=== PATIENT | female | born 1965 | race Caucasian/White ===

== ENCOUNTER 2017-05-21 06:19 | Inpatient (IN) | payer BC, OTHER ==
--- NOTE | 2017-05-08 14:15 | HP ---
CC: Dr. Rogers * PREOPERATIVE HISTORY AND PHYSICAL: DATE OF PREOPERATIVE HISTORY AND PHYSICAL EXAMINATION: 05/06/17. DATE OF ADMISSION/SURGERY: 05/21/17 - This patient is scheduled for AA admission by Dr. Cameron on 05/21/17. ATTENDING SURGEON: Cali Cameron MD * (dictated by Cristiane Mederos NP.) . CHIEF COMPLAINT: Morbid obesity. HISTORY OF PRESENT ILLNESS: The patient is a 51-year-old female with class II morbid obesity with a body mass index of 38.8 and comorbidities of type 2 diabetes, Morales's esophagus, osteoarthritis and depression. She is well known to Dr. Cameron. She had a Lap Band placed 15 years ago and at that time, she weighed 245 pounds and had weight loss down to 150 pounds; the Lap Band slipped and required repeat procedure that was complicated by gastric perforation, requiring emergent laparotomy and the Lap Band was removed in 2005. She regained weight to 220 pounds and eventually had the Lap Band replaced. She has not had much success with weight loss and when the band was filled, she suffered reflux symptoms that worsened and was diagnosed with Morales's esophagitis. Currently, there is no fill in the Lap Band. She has discussed with Dr. Cameron removing the Lap Band and converting to laparoscopic Douglas-en-Y gastric bypass. Dr. Cameron has discussed the situation with the patient and has deemed her an appropriate candidate to proceed with laparoscopic removal of the Lap Band and Douglas-en-Y gastric bypass. She completed medically supervised weight loss and all of the necessary preoperative diagnostic testing and evaluations. She started her preoperative diet May 07, 2017. Dr. Cameron discussed the nature of the surgical procedure, the relevant risks, complications, and alternatives, and today I reviewed the typical hospitalization as well as the postoperative care and recovery. The patient understands the importance of following the dietary guidelines postoperatively, the use of vitamin and mineral supplementation, exercise, and followup appointments at [facility]. The patient has had a chance to ask questions and stated that she understands the information and is satisfied with the answers given to her questions. She will sign surgical consent on the day of surgery. PAST MEDICAL HISTORY: Significant for morbid obesity, type 2 diabetes, gastroesophageal reflux disease and Morales's esophagitis, exertional asthma, degenerative disk disease, left knee meniscal tear, requiring left knee arthroscopy and meniscectomy in July 2016, and depression. PAST SURGICAL HISTORY: Left knee arthroscopy and meniscectomy in July 2016 ; Lap Band in 2002 with Lap Band removal and eventual replacement in 2005, laparoscopic lysis of adhesions with ventral hernia repair with mesh in 2007, breast reduction and augmentation in 1997, right carpal tunnel release in 1995, and appendectomy remotely. OB HISTORY: 2, para 2. She is up-to-date with breast exam, pelvic and Pap smear and has a Mirena IUD in place. She reports that she has occasional breakthrough bleeding about twice a year. MEDICATIONS: 1. Venlafaxine ER 150 mg 1 tablet p.o. daily. 2. Benadryl Allergy 10 mg p.o. daily. 3. Ranitidine 75 mg p.o. daily. 4. Metformin 500 mg p.o. daily and the patient was instructed to hold this for 24 hours preoperatively and to possibly discontinue the metformin on the preop diet if she has symptoms of hypoglycemia. 5. Pantoprazole 40 mg p.o. daily. 6. Benefiber supplement. 7. Vitamin D 1000 international units daily. 8. Vitamin B12 at 500 mcg p.o. daily. 9. ProAir inhaler p.r.n. wheezing. ALLERGIES: LATEX caused rash and itching, OXYCODONE caused itching, MORPHINE caused severe vomiting, RELAFEN caused severe headache, and CIPRO caused hives. FAMILY HISTORY: Grandmother with history of deep vein thrombosis; father at age 48 due to possible metastatic colon cancer. History of heart disease and diabetes type 2 in the family. No known anesthesia complications or bleeding tendencies. 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 She rarely drinks alcohol and denies the use of other substances. REVIEW OF SYSTEMS: Constitutional: Negative for fever, chills, or night sweats. No recent viral illnesses. No history of anesthesia complications. HEENT: Negative for dizziness, syncopal episodes, recent headache. Endocrine: Type 2 diabetes with hemoglobin A1c 6.8 and fasting glucose 148 on 03/01/17. She does not do routine fingersticks. Hematologic: No easy bruising or bleeding. Denies any history of deep vein thrombosis or pulmonary embolism. Respiratory: No cough. No dyspnea on exertion, but she does have a history of exertional asthma. No recent flare ups. Cardiovascular: No anginal chest pain , palpitations or orthopnea. Gastrointestinal: History of GERD and Morales's esophagitis; EGD done in 2014 to diagnose the Morales's esophagitis; gallbladder ultrasound in 2012 revealed cholelithiasis, no acute changes. No recent complaints of right upper quadrant pain, change in the color of urine or stool or intolerance to fatty foods. Genitourinary: Denies urinary frequency, urgency, or nocturia. No history of recent urinary tract infection. Musculoskeletal: Status post left knee arthroscopy and meniscectomy and reports mild discomfort after standing for prolonged periods; history of lower back pain with degenerative disk disease and scoliosis. Neurologic: No history of seizures, stroke, or paresthesias. Infectious Disease: Negative for MRSA, hepatitis C, or HIV. PHYSICAL EXAMINATION GENERAL SURVEY: The patient is a 51-year-old female with class II obesity. VITAL SIGNS: Height 62 inches, weight 212 pounds. Body mass index 38.8. Blood pressure 126/82, pulse 78 and regular, respiratory rate 16, temperature 96.7 tympanic. SKIN: Warm, dry, intact. HEENT: Benign. NECK: Supple. No cervical lymphadenopathy. No thyromegaly. BACK: No CVA tenderness. LUNGS: Breath sounds bilaterally clear and equal. HEART: Regular rate and rhythm. No murmurs or rubs. ABDOMEN: Active bowel sounds, obese, soft and nondistended and nontender throughout. Well-healed surgical scars. Palpable Lap Band port. No obvious masses, organomegaly, or evidence of ventral hernia. PELVIC: Deferred. RECTAL: Deferred. EXTREMITIES: Warm. Varicose veins are noted right lower extremity. No edema or ulceration bilaterally. NEUROLOGIC: Alert and oriented x3. Steady gait. IMPRESSION: 1. Class II morbid obesity. 2. Morales's esophagus without dysplasia. PLAN: AA admission to Dr. Cameron' service on 05/21/17, for laparoscopic removal of Lap Band and laparoscopic Douglas-en-Y gastric bypass. GISELE ECKENRODE, HOLTER TECHNICIAN [id number]/[facility] #: [id number] TIN
[~2017-05-21 06:19] MED LIST: Buffered Lidocaine 0.9% SYRIN* 5 ML/SYR SYRINGE INTRADERM ONE; Dexamethasone IV* 4 MG/ML 1 ML (4 MG) IV SLOW PU ONE; Scopolamine 1.5 mg* PATCH TRANSDERM ONE
[2017-05-21] MEDS ORDERED: Dexamethasone IV* 4 MG/ML 1 ML (4 MG) ONE (06:44)
[2017-05-21] MEDS ORDERED: Scopolamine 1.5 mg* PATCH ONE (06:44)
[2017-05-21] MEDS ORDERED: Clindamycin 900 MG IVPREMIX(* 900 MG/50 ML SDV IV ONE (06:44)
[2017-05-21] MEDS ORDERED: ceFAZolin 1 GM ADVAN(*) 1 GM ADDV.VIAL IVPB ONE ×2 (06:44→11:39)
[2017-05-21] MEDS ORDERED: ceFAZolin 2 GM PREMIX (*) 50 ML IVPB ONE ×2 (06:44→11:39)
[2017-05-21] MEDS ORDERED: Heparin VIAL(*) 5000 UNITS/ML VIAL (FIVE THOUSAND) ONE (06:44)
[2017-05-21] MEDS ORDERED: Buffered Lidocaine 0.9% SYRIN* 5 ML/SYR SYRINGE ONE (06:45)
[2017-05-21] MEDS ORDERED: Bupivacaine 0.25% SDV* 30 ML ONE (07:14)
[2017-05-21] MEDS ORDERED: Methylene Blue 0.5 %* 50 MG/10 ML AMP IV ONE (07:14)
[2017-05-21] MEDS ORDERED: Lidocaine 2% PF * 5 ML VIAL ONE (07:20)
[2017-05-21] MEDS ORDERED: Rocuronium* 10 MG/ML VIAL ONE ×2 (07:20→09:32)
[2017-05-21] MEDS ORDERED: Propofol* 10 MG/ML 20 ML BTL IV PUSH ONE (07:20)
[2017-05-21] MEDS ORDERED: fentaNYL* 50 MCG/ML 2 ML VIAL (100 MCG VIAL) ONE ×5 (07:47→12:51)
[2017-05-21] MEDS ORDERED: Midazolam* 1 MG/ML 5 ML VIAL (5 MG) ONE (07:48)
[2017-05-21] MEDS ORDERED: Phenylephrine IV* 40 MCG/ML 10 ML SYRINGE ONE (08:16)
[2017-05-21] MEDS ORDERED: Phenylephrine INJ* 10 MG/ML 1 ML VIAL (10 MG) ONE (08:27)
[2017-05-21] MEDS ORDERED: PROCHLORPERAZINE INJ 5 MG/ML 2 ML VIAL IV PRN (09:01)
[2017-05-21] MEDS ORDERED: Acetaminophen IV 1GM/100ML * 100 ML IVPB ONE (09:01)
[2017-05-21] MEDS ORDERED: fentaNYL* 50 MCG/ML 2 ML VIAL (100 MCG VIAL) IV PRN (09:01)
[2017-05-21] MEDS ORDERED: HYDROmorphone* 1 MG/ML 1 ML CARPUJECT IV PRN ×2 (09:01→13:48)
[2017-05-21] MEDS ORDERED: hydrALAZINE IV* 20 MG/ML VIAL ONE (09:39)
[2017-05-21] MEDS ORDERED: Metoprolol Tartrate IV* 1 MG/ML 5 ML VIAL ONE (09:54)
[2017-05-21] MEDS ORDERED: Acetaminophen IV 1GM/100ML * 100 ML ONE (11:33)
[2017-05-21] MEDS ORDERED: Insulin REGULAR(*) 1 UNITS UNIT ONE (11:38)
[2017-05-21] MEDS ORDERED: Insulin LISPRO* 1 UNITS UNIT SUBCUT ONE (11:40)
[2017-05-21] MEDS ORDERED: Ondansetron INJ* 2 MG/ML VIAL ONE (12:14)
[2017-05-21] MEDS ORDERED: Neostigmine Methylsulfate* 2 MG/2 ML SYRINGE ONE (13:30)
[2017-05-21] MEDS ORDERED: Glycopyrrolate IV* 0.2 MG/ML 1 ML VIAL ONE (13:30)
[2017-05-21] MEDS ORDERED: Ondansetron INJ* 2 MG/ML VIAL IV PRN (13:48)
[2017-05-21] MEDS ORDERED: diPHENhydraMINE IV* 50 MG/ML 1 ml VIAL (BENADRYL) SLOW PUSH PRN (13:48)
[2017-05-21] MEDS ORDERED: Acetaminophen ADULT LIQ* 650 MG/20.3 ML UDC PO PRN (13:48)
--- NOTE | 2017-05-21 13:48 | PN ---
Progress Note - Progress Note Date of Service: 05/21/17 Note: Brief Operative Note: Preop Dx: Morbid Obesity Postop Dx: same Procedure: Laparoscopic lysis of adhesions, lap band removal and conversion to Douglas-en-y gastric bypass Anesthesia: GET Surgeon: Nisha Arts Administrator: Hank Wilkinson EBL: 75-100 mL Fluids: 3700 mL Specimen: none Findings: dictated Drains: 1 OLAMIDE
[2017-05-21] MEDS ORDERED: Labetalol IV* 5 MG/ML 20 ML VIAL ONE (13:55)
[2017-05-21] MEDS ORDERED: Albuterol HFA INHALER* 8 gm MDI INH PRN (14:02)
[2017-05-21] MEDS ORDERED: Fluticasone NASAL SPRAY 50MCG* 16 gm SPRAY BTL BOTH NARES PRN (14:02)
[2017-05-21] MEDS ORDERED: NS 0.9% 500 ML BAG* 500 ML IV PRN (14:05)
[2017-05-21] MEDS ORDERED: Famotidine IV* 10 MG/ML 2 ML (20 mg) ONE (17:30)
[2017-05-21] MEDS: Ketorolac INJ* 30 MG/ML 1 ML VIAL IV PRN (17:48)
[2017-05-21] MEDS: HYDROmorphone* 1 MG/ML 1 ML CARPUJECT IV PRN (20:06)
--- NOTE | 2017-05-22 01:45 | OP ---
CC: Naun Dyson MD, [place] * DATE OF SURGERY: 05/21/17 - ROOM #353 DATE OF : 69 SURGEON: Cali Cameron MD ASSISTANTS: 1. Dr. Ced Wilkinson. 2. GOPI Alatorre ANESTHESIOLOGIST: Rob Domingo MD ANESTHESIA: General endotracheal. PRE-OP DIAGNOSIS: Chronically severe obesity, status post adjustable gastric banding. POST-OP DIAGNOSIS: Chronically severe obesity, status post adjustable gastric banding. OPERATIVE PROCEDURE: Laparoscopic removal of lap band and subcutaneous components with lysis of adhesions and laparoscopic Douglas-en-Y gastric bypass. ESTIMATED BLOOD LOSS: 100 mL. IV FLUIDS: 3.7 L of crystalloids. SPECIMEN: None. DRAINS: A 7 mm Matt-Bunch x1. COMPLICATIONS: None. COUNTS: The instrument, needle, and sponge counts were correct. DESCRIPTION OF PROCEDURE: The patient was brought to the operating room and placed on the table supine. Sequential compression devices were placed on both lower extremities. She was administered general anesthesia and then the Valles catheter was placed. She was positioned and padded appropriately and her abdomen was then prepped and draped in the usual sterile fashion. Time-out was performed. Pneumoperitoneum was established using a Veress needle. This was placed trans- umbilically. After accessing the peritoneal cavity and carbon dioxide had been insufflated to a pressure of 15 mmHg, a 12-mm optical trocar was placed in the left upper quadrant. The laparoscope was introduced and there was noted to be surrounding omental fat and there was no window visible into the remaining abdomen. Subsequently, a 12-mm trocar was placed in the midline epigastrium and again omental fat was encountered, but the inferior abdomen was able to be visualized and a 5-mm trocar was placed in the right upper quadrant and then under direct visualization, a 12-mm trocar was placed in the right upper quadrant further laterally. Extensive adhesiolysis freeing omentum to the anterior abdominal wall was performed with the LigaSure. There was noted to be an abdominal wall mesh from prior umbilical hernia repair. The liver was noted to be adherent to the anterior abdominal wall. There were visualized portions of the lap band access tubing, which was traced to a space beneath the liver. Dissection beneath the liver was complicated and tedious due to the patient's prior history of laparotomy for placement of her lap band. Painstaking dissection to free the undersurface of the liver from adhesions was performed and areas of oozing from the omentum were controlled with LigaSure. The greater omentum was adherent across the anterior stomach to the lesser omentum and LigaSure was used to divide this and the anterior wall of the stomach could be visualized. The dissection then proceeded up along the lesser curvature to the capsule of the band, which was incised with cautery until the entire bishop of the band was able to be identified and freed. Then the bishop of the band was cut and removed. As the dissection proceeded further, a Alfredo liver retractor was placed in the subxiphoid position and used to elevate the left lobe of the liver and then the sutures that had been used to plicate tissue over the band were identified and divided and incremental division of the capsule of the band was performed from the anterior stomach around to the left lateral aspect of the stomach with care to identify the gastric wall and avoid injury to it. Eventually, the band was deflated by first incising the skin over the subcutaneous access port and dividing the subcutaneous tissues with the cautery down to the access port. The access port was then accessed and fluid was withdrawn from the band. Subsequently, the band was able to be removed from the retrogastric tunnel. The band was positioned in the right upper quadrant. The dissection then proceeded in order to free the remaining portions of the stomach taking down any gastrogastric plicating sutures. Ultimately, the dissection was carried out laterally to the left fiordaliza of the diaphragm. To this point of the surgery, it took approximately 2 hours and subsequently the gastric bypass was then performed. The dissection on the lesser curvature of the stomach was performed with cautery and blunt dissection and until the lesser sac was entered. Then a gastric pouch was created with several firings of the Endo ANA MARIA stapler using purple cartridges. The transverse firing on the stomach was performed without any reinforcement and the subsequent vertical firings towards the area of the left fiordaliza of the diaphragm/angle of His were performed with purple cartridges with reinforcement. After completing the division of the gastric pouch, a 36- Finnish gastric lavage tube was placed into the gastric pouch and the transverse colon and omentum were retracted superiorly. At this point, the lap band tubing was again in the way, so it was decided to remove the lap band and subcutaneous component completely at this time. First the subcutaneous port was dissected free from the abdominal wall using cautery and sharp dissection, then tubing was disconnected from the port. The tubing was allowed to retract into the abdomen and the tubing was withdrawn from the areas of the omentum that were enveloping it. Then the tubing was grasped and the entire band was withdrawn through the left upper quadrant port. Next the omentum and transverse colon were able to be retracted superiorly and the ligament of Treitz was identified. The jejunum was measured at 50 to 60 cm and sutured to the lateral staple line of the gastric pouch with interrupted 2-0 silk sutures. Gastrotomy was created in the gastric pouch and enterotomy in the loop of jejunum and then Endo ANA MARIA stapler with a 30-mm montalvo cartridge was used to create the gastrojejunostomy. The gastrojejunal enterostomy defect was then closed with 3-0 Maxon in running fashion over the 36-Finnish and a gastric lavage tube, so as not to encroach upon the anastomosis. Next the [place]-Loop of jejunum was divided to the left of the gastric pouch and then the Douglas limb was measured out for 75 cm at which point a functional end-to - side jejunojejunostomy was created with a 60 mm montalvo Endo ANA MARIA stapler. The common enterotomy was run close with 3-0 Maxon. The 3-0 silks were used to close the mesenteric defect. A OLAMIDE drain was placed into the abdominal cavity and withdrawn through the left upper quadrant 5 mm port site. This port had been placed after the Alfredo liver retractor had been placed. The tubing was sutured to the skin with 3-0 Surgipro and the OLAMIDE drain was placed adjacent to the gastrojejunal anastomosis and subsequently inspection of the liver revealed that there were some areas where the liver had been denuded off capsule; however, hemostasis was good. The ports were all withdrawn under direct visualization and carbon dioxide was released. The skin incisions were closed with kate and dressings applied. The patient tolerated the procedure well and was extubated and transferred to Recovery in a stable condition. The case was more complex than usual to the patient's extensive adhesions because of her prior open abdominal surgery. Time for the case was 5 hours. [id number]/[facility] #: [id number] [facility] HOSPITALCee
[2017-05-22] MEDS: Ketorolac INJ* 30 MG/ML 1 ML VIAL IV PRN ×3 (03:29→20:47)
[2017-05-22] MEDS ORDERED: Famotidine IV* 10 MG/ML 2 ML (20 mg) ONE ×2 (04:53→17:00)
[2017-05-22] MEDS: Heparin VIAL(*) 5000 UNITS/ML VIAL (FIVE THOUSAND) SUBCUT SCH ×3 (05:56→22:18)
[2017-05-22] MEDS: HYDROmorphone* 1 MG/ML 1 ML CARPUJECT IV PRN (06:11)
--- NOTE | 2017-05-22 08:38 | PN ---
Progress Note - Progress Note Date of Service: 05/22/17 SOAP: Subjective: C/o MATHIAS, otherwise no pain. Denies N/V. Discussed surgical findings. Objective: Vital Signs Temp 98.1 F 05/22/17 07:39 Pulse 110 05/22/17 07:39 Resp 18 05/22/17 08:00 BP 113/68 05/22/17 07:39 Pulse Ox 97 05/22/17 08:00 Gen: NAD; lying in bed. Abd: incis dressed, c/d/i; OLAMIDE SS; soft; tender at incisions. Intake & Output 05/21/17 05/22/17 05/22/17 18:59 06:59 18:59 Intake Total 3800 2009 Output Total 700 2387 30 Balance 5910 -827 -30 Intake: IV Fluids 3800 2009 LR 3800 2009 Oral 0 Output: OLAMIDE #1 125 112 30 [place] 475 4508 Estimated Blood Loss 100 Laboratory Results - last 24 hr 05/21/17 05/21/17 05/21/17 11:20 11:22 12:47 POC Glucose (mg/dL) 160 H 203 H 203 H 05/21/17 05/21/17 05/22/17 14:06 17:42 00:32 POC Glucose (mg/dL) 203 H 168 H 145 H 05/22/17 06:02 POC Glucose (mg/dL) 141 H Assessment: POD#1 s/p revision LAGB to LRYGB. Doing well. Plan: Clears. Cont OLAMIDE. Ambulated.
[2017-05-22] MEDS: HYDROcodone/ACET. 7.5/325 LIQ* 15 ML UDC PO PRN (10:52)
[2017-05-22] MEDS: D5W 1/2 NS KCl 20 Meq 1000 ML* 1,000 ML IV SCH ×2 (17:18→23:58)
[2017-05-23] MEDS ORDERED: Famotidine IV* 10 MG/ML 2 ML (20 mg) ONE (04:49)
[2017-05-23] MEDS: Ketorolac INJ* 30 MG/ML 1 ML VIAL IV PRN ×2 (04:55→13:31)
[2017-05-23] MEDS: Heparin VIAL(*) 5000 UNITS/ML VIAL (FIVE THOUSAND) SUBCUT SCH ×3 (05:00→22:03)
[2017-05-23] MEDS: D5W 1/2 NS KCl 20 Meq 1000 ML* 1,000 ML IV SCH (06:55)
--- NOTE | 2017-05-23 08:35 | PN ---
Progress Note - Progress Note Date of Service: 05/23/17 SOAP: Subjective: C/o MATHIAS. Mild abd pain. Tolerating some po. Objective: Vital Signs Temp 98.3 F 05/23/17 03:42 Pulse 108 05/23/17 03:42 Resp 16 05/23/17 03:42 BP 141/80 05/23/17 03:42 Pulse Ox 96 05/23/17 03:42 Abd: ND, incis with kate c/d/i; soft; min tender. OLAMIDE SS. Intake & Output 05/22/17 05/23/17 05/23/17 18:59 06:59 18:59 Intake Total 1696 2566 Output Total 995 3775 1000 Balance 701 -1209 -1000 Intake: IV Fluids 1651 1961 1/2 NS w/ 20 mEq K 1961 LR 1651 IVPB 105 1/2 NS w/ 20 mEq K 105 Oral 45 500 Output: OLAMIDE #1 145 125 Urine 850 3650 1000 Other: # Bowel Movements 0 Assessment: POD#2 s/p revision lap band to bypass. Doing well. Plan: Cont diet. Cont OLAMIDE. HLIV. Home in AM 05/24.
[2017-05-23] MEDS ORDERED: Venlafaxine EXT RELEASE CAP* 75 MG PO SCH (18:00)
[2017-05-23] MEDS: HYDROcodone/ACET. 7.5/325 LIQ* 15 ML UDC PO PRN (22:07)
[2017-05-24] MEDS: HYDROcodone/ACET. 7.5/325 LIQ* 15 ML UDC PO PRN (05:24)
[2017-05-24] MEDS: Heparin VIAL(*) 5000 UNITS/ML VIAL (FIVE THOUSAND) SUBCUT SCH (05:26)
[2017-05-24] MEDS ORDERED: Scopolomine PATCH Remove* 1 NOTE MISC PATCH OFF ONE (06:00)
[2017-05-24 07:51] VITALS: BP 116/79
--- NOTE | 2017-05-24 08:33 | PN ---
Progress Note - Progress Note Date of Service: 05/24/17 SOAP: Subjective: No pain. Passing flatus. Tolerating po without N/V. Objective: Vital Signs Temp 97.9 F 05/24/17 07:36 Pulse 86 05/24/17 07:36 Resp 16 05/24/17 07:36 BP 116/79 05/24/17 07:36 Pulse Ox 96 05/24/17 07:36 NAD abd: incis c/d/i no erythema; OLAMIDE SS Intake & Output 05/23/17 05/24/17 05/24/17 18:59 06:59 18:59 Intake Total 510 Output Total 4250 690 Balance -4250 -180 Intake: Oral 510 Output: OLAMIDE #1 50 90 Urine 4200 600 Assessment: POD#3 s/p removal LAGB/LRYGB. Doing well. Plan: Home today with OLAMIDE. Follow up in 5-7 days for kate and OLAMIDE removal.
[2017-05-24] MEDS ORDERED: HYDROcodone/ACET. 7.5/325 LIQ* 15 ML UDC PO PRN (08:49)
--- NOTE | 2017-05-24 10:37 | DS ---
CC: Dr. Cameron; Dr. Dyson* DISCHARGE SUMMARY: DATE OF ADMISSION: 05/21/17 DATE OF DISCHARGE: 05/24/17 ATTENDING SURGEON: Dr. Cali Cameron * (DICTATED BY GISELE DAS NP) HOSPITAL COURSE: Please refer to admission history and physical for admission details. The patient was taken to the operating room on 05/21/17, and underwent laparoscopic removal of lap band and subcutaneous components with lysis of adhesions and gastric bypass. She had an uneventful postoperative course and as of the morning of discharge was tolerating 120 mL of clear liquids per hour, her pain was well controlled, fingerstick glucoses have run between 145 and 155 over the last 48 hours. PHYSICAL EXAMINATION: Vital Signs: Temperature 97.9, blood pressure 116/79, pulse 86 and regular, respiratory rate 16, O2 saturation 96% on room air. General: Well nourished and in no acute distress, walking around the room. Lungs: Breath sounds bilaterally clear and equal. No rales or wheezes. Heart : Regular rate and rhythm. No murmurs or rubs. Abdomen: Laparoscopic incision sites intact with kate; OLAMIDE drain with serosanguineous drainage; abdomen is obese and soft with active bowel sounds. Extremities: Warm without edema and the calves are nontender. IMPRESSION: Status post laparoscopic removal of lap band and subcutaneous components with lysis of adhesions and gastric bypass, feeling well. PLAN: Discharge home today; medications were reviewed; she will follow the prescribed bariatric dietary guidelines; she has an appointment scheduled in our office on Saturday, May 29, at 3:30 p.m. for a postoperative assessment, OLAMIDE drain removal, and surgical staple removal. All of her questions were answered and she knows to call with any concerns. GISELE DAS, JUAN M [id number]/[facility] #: [id number] TIN
== END 2017-05-24 10:20 | disposition home or self-care (01) | DRG 403 ==
LOC: AA 06:19 → SSU 15:59
PROVIDERS: ADMIT Surgery; ATTEND Surgery
PROC: 0DP64CZ Removal of Extraluminal Device from Stomach, Percutaneous Endoscopic Approach (ICD-10-PCS; 2017-05-21)
PROC: 0DNS4ZZ (ICD-10-PCS; 2017-05-21)
PROC: 0D168ZA Bypass Stomach to Jejunum, Via Natural or Artificial Opening Endoscopic (ICD-10-PCS; principal; 2017-05-21 07:45)
DX: E66.01 Morbid (severe) obesity due to excess calories (principal); M41.9 Scoliosis, unspecified; F32.9 Major depressive disorder, single episode, unspecified; Z68.39 Body mass index [BMI] 39.0-39.9, adult; E11.9 Type 2 diabetes mellitus without complications; K22.70 Barrett's esophagus without dysplasia; J45.998 Other asthma; M19.90 Unspecified osteoarthritis, unspecified site; Z88.5 Allergy status to narcotic agent; Z88.8 Allergy status to other drugs, medicaments and biological substances; Z88.6 Allergy status to analgesic agent; Z88.1 Allergy status to other antibiotic agents; Z91.040 Latex allergy status; Z87.891 Personal history of nicotine dependence; Z83.3 Family history of diabetes mellitus; Z82.49 Family history of ischemic heart disease and other diseases of the circulatory system; I83.91 Asymptomatic varicose veins of right lower extremity; K66.0 Peritoneal adhesions (postprocedural) (postinfection); G43.909 Migraine, unspecified, not intractable, without status migrainosus; K21.0 Gastro-esophageal reflux disease with esophagitis
CPT/HCPCS: 81025; A9270-GY; C1776; J0360; J0690; J1100; J1170; J1644; J1885; J2250; J2405; J2704; J3010

== ENCOUNTER 2018-07-24 18:55 | Emergency (ER) | payer BC ==
--- OUTSIDE RECORDS SUMMARY | 2018-07-24 20:22 | XMS REPORT ---
:1965 Author Organization [facility] Address [address] [place] [address] Care Team Providers Name Role Phone Jermaine Gross Unavailable Unavailable PROBLEMS Type Condition ICD9-CM [id number] Onset Condition SNOMED Code Code Code Dates Status Problem Family history of Z80.0 Active 317446192 malignant neoplasm of digestive organs Problem Unspecified R32 Active 045323822 urinary incontinence Problem Unspecified lump N63.21 Active 925671089523561 in the left breast, upper outer quadrant Problem Nicotine F17.200 Active 359920299 dependence, unspecified, uncomplicated Problem Excessive and N92.0 Active 098937131 frequent menstruation with regular cycle Problem Hypertrophy of N85.2 Active 664934688 uterus Problem Leiomyoma of D25.9 Active 17452592 uterus, unspecified Problem Submucous D25.0 Active 05533011 leiomyoma of uterus Problem 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) Problem Other specified N93.8 Active 163046851 abnormal uterine and vaginal bleeding ALLERGIES No Information ENCOUNTERS Encounter Location Date Diagnosis [address] Jul, [facility] [address] [place], [place] [id number] [facility] [address] [place], Jul, [facility] [id number] [address] Jul, [facility] [address] [place], [place] [id number] [facility] 103 Jun, OBN [place] [id number] [facility] 103 Jun, OBGYN [place], [place] [id number] [place] [facility] 103 Jun, Other specified abnormal 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 [place] [facility] [address] May, Other specified abnormal [address] [place], uterine and vaginal [place] [id number] bleeding N93.8 and Leiomyoma of uterus, unspecified D25.9 [facility] May, Other specified abnormal [facility] [place] [id number] bleeding N93.8 and Leiomyoma of uterus, unspecified D25.9 [place] [facility] 103 May, Other specified abnormal [facility] [place] [id number] bleeding N93.8 and Leiomyoma of uterus, unspecified D25.9 [place] [facility] 103 May, Unspecified lump in the OBGYN [facility] left breast, upper outer [place], [place] [id number] quadrant N63.21 ; Other specified abnormal uterine and vaginal bleeding N93.8 and Leiomyoma of uterus, unspecified D25.9 [place] [facility] 103 May, OBGYN [place] [id number] [place] [facility] 103 Apr, OBG[place], [place] [id number] [place] [facility] 103 Apr, O[place] [id number] [place] [facility] 103 Feb, OBGYN [place] [id number] [place] [facility] 103 January, Encounter for gynecological OBGYN [facility] examination (general) [place], [place] [id number] (routine) with abnormal findings Z01.411 ; Nicotine dependence, unspecified, uncomplicated F17.200 ; Encounter for screening for malignant neoplasm of cervix Z12.4 ; Encounter for screening for malignant neoplasm of colon Z12.11 ; Unspecified urinary incontinence R32 ; Unspecified lump in the left breast, upper outer quadrant N63.21 and Family history of malignant neoplasm of digestive organs Z80.0 [place] [facility] 103 Oct, OBGYN [place] [id number] [place] [facility] 103 Jun, OBGYN [place] [id number] [place] [facility] 103 Jul, Encounter for gynecological OBGYN [facility] examination (general) [place], [place] [id number] (routine) without abnormal findings Z01.419 ; Nicotine dependence, unspecified, uncomplicated F17.200 and Encounter for screening mammogram for malignant neoplasm of breast Z12.31 [place] [facility] 103 Jun, Encounter for gynecological OBGYN [facility] examination (general) [place], [place] [id number] (routine) without abnormal findings Z01.419 and Encounter for screening mammogram for malignant neoplasm of breast Z12.31 [place] [facility] 103 Apr, IUD SURVEILLANCE V25.42 OBGYN [place], [place] [id number] [place] [facility] 103 Feb, OBG[place], [place] [id number] [place] [facility] 103 Feb, Menometrorrhagia 626.2 OBGYN [place] [id number] [place] [facility] 103 29 May, 2015 CONTRACEPTIVE MANGMT NOS OBGYN [facility] V25.9 and Menometrorrhagia [place], [place] [id number] 626.2 [facility] 103 January, Menometrorrhagia 626.2 [place] [id number] [facility] 103 January, [place] [id number] [facility] 103 Dec, Menometrorrhagia 626.2 [place]BN [place] [id number] [address] Oct, Menometrorrhagia 626.2 ; [facility] [address] [place], Tobacco use disorder 305.1 [place] [id number] ; Dysmenorrhea 625.3 and Submucous leiomyoma of uterus 218.0 [facility] 103 Oct, [place]BGYN [place] [id number] [facility] 103 Oct, Menometrorrhagia 626.2 ; [facility] Tobacco use disorder 305.1 [place] [id number] and Dysmenorrhea 625.3 [facility] 103 Oct, Menometrorrhagia 626.2 ; [facility] Tobacco use disorder 305.1 [place], [place] [id number] and Dysmenorrhea 625.3 [facility] 103 Oct, Menometrorrhagia 626.2 and [facility] Submucous leiomyoma of [place], [place] [id number] uterus 218.0 [facility] 103 Oct, Menometrorrhagia 626.2 ; [facility] Tobacco use disorder 305.1 [place] [id number] and Dysmenorrhea 625.3 IMMUNIZATIONS No Known Immunizations SOCIAL HISTORY Never Assessed REASON FOR REFERRAL FUNCTIONAL STATUS PLAN OF CARE VITAL SIGNS MEDICATIONS Unknown Medications PROCEDURES No Known procedures RESULTS No Results REASON FOR VISIT Covered * No deductable or co-insurance * $20 copay (office), $30 copay (out-pt. ) * No pre-certs required * [facility]# [id number] - LMTCB 07/08/18 Insurance Providers [employer] Member Patient Patient Patient Patient Patient Subscriber Subscriber Subscriber Group Insurance Plan Plan Plan Plan ID Relationship Address Phone Name Date of ID Name Date of No Type Insurance Insurance Insurance Coverage to Subscriber Address Phone Name Dates [place] [phone] [place] self Jessica [id number] Plan for 1600 Plan [facility]. [facility] 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 Surgical History breast reduction 1995 or 1996 Surgical History Lap band 2000 Surgical History band had slipped and when they went into to 2004 or 2006 repeair it doctor knicked stomach and had to go in and do emergency surgery to repeair Surgical History Lap Band 2010 Surgical History umbilical hernia repair 2006 Surgical History appendectomy 1985 Surgical History colonoscopy 2012 Surgical History Colonoscopy- 3 polyps- 1 was precancerous 2015 Surgical History Gastric Bypass 05/2017 Hospitalization History see above Hospitalization History see above Hospitalization History childbirth x 2 Hospitalization History childbirth x 2 Hospitalization History Gastric Bypass 05/2017
--- OUTSIDE RECORDS SUMMARY | 2018-07-24 20:22 | XMS REPORT ---
:1965 Author Organization [facility] Address [address] [place] [address] Care Team Providers Name Role Phone Jermaine Gross Unavailable Unavailable PROBLEMS Type Condition ICD9-CM [id number] Onset Condition SNOMED Code Code Code Dates Status Problem Family history of Z80.0 Active 154332766 malignant neoplasm of digestive organs Problem Unspecified R32 Active 608932233 urinary incontinence Problem Unspecified lump N63.21 Active 880513453516684 in the left breast, upper outer quadrant Problem Nicotine F17.200 Active 419230210 dependence, unspecified, uncomplicated Problem Excessive and N92.0 Active 986713407 frequent menstruation with regular cycle Problem Hypertrophy of N85.2 Active 018980436 uterus Problem Leiomyoma of D25.9 Active 36637584 uterus, unspecified Problem Submucous D25.0 Active 56718050 leiomyoma of uterus Problem 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 046262319 anemia secondary to blood loss (chronic) Problem Other specified N93.8 Active 700258961 abnormal uterine and vaginal bleeding ALLERGIES Substance Reaction Event Type Date Status latex swelling Drug Allergy Jun, Active hydrocodone pruritus Drug Allergy Jun, Active morphine extreme vomiting Drug Allergy Jun, Active Relafen severe headache Drug Allergy Jun, Active Cefzil hives Drug Allergy Jun, Active ENCOUNTERS Encounter Location Date Diagnosis [facility] 103 Jun, [place] [id number] [address] Jun, Excessive and frequent OBGYN [address] [place], menstruation with regular [place] [id number] cycle N92.0 ; Leiomyoma of uterus, unspecified D25.9 ; Hypertrophy of uterus N85.2 and 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 [place] [facility] May, Other specified abnormal [facility] [address] [place], uterine and vaginal [place] [id number] bleeding N93.8 and Leiomyoma of uterus, unspecified D25.9 [facility] 103 May, Other specified abnormal [facility] uterine and vaginal [place], [place] [id number] bleeding N93.8 and Leiomyoma of uterus, unspecified D25.9 [facility] 103 May, Other specified abnormal [facility] uterine and vaginal [place], [place] [id number] bleeding N93.8 and Leiomyoma of uterus, unspecified D25.9 [facility] 103 May, [facility], upper outer [place], [place] [id number] quadrant N63.21 ; Other specified abnormal uterine and vaginal bleeding N93.8 and Leiomyoma of uterus, unspecified D25.9 [facility] 103 May, [place], [place] [id number] [facility] 103 Apr, [place] [id number] [facility] Apr, [place] [id number] [facility] 103 Feb, [place] [id number] [place] [facility] 103 January, Encounter for gynecological [facility] examination (general) [place], [place] [id number] (routine) with abnormal findings Z01.411 ; Nicotine dependence, unspecified, uncomplicated F17.200 ; Encounter for screening for malignant neoplasm of cervix Z12.4 ; Encounter for screening for malignant neoplasm of colon Z12.11 ; Unspecified urinary incontinence R32 ; Unspecified lump in the left breast, upper outer quadrant N63.21 and Family history of malignant neoplasm of digestive organs Z80.0 [place] [facility] 103 Oct, [place] [id number] [facility] 103 Jun, [place] [id number] [facility] [facility] 103 Jul, Encounter for gynecological OBGYN [facility] examination (general) [place], [place] [id number] (routine) without abnormal findings Z01.419 ; Nicotine dependence, unspecified, uncomplicated F17.200 and Encounter for screening mammogram for malignant neoplasm of breast Z12.31 [place] [facility] 103 Jun, Encounter for gynecological OBGYN [facility] examination (general) [place], [place] [id number] (routine) without abnormal findings Z01.419 and Encounter for screening mammogram for malignant neoplasm of breast Z12.31 [place] [facility] 103 Apr, IUD SURVEILLANCE V25.42 [place] [id number] [place] [facility] 103 Feb, [place] [id number] [facility] [facility] 103 Feb, Menometrorrhagia 626.2 [place] [id number] [place] [facility] 103 January, CONTRACEPTIVE MANGMT NOS OBN [facility] V25.9 and Menometrorrhagia [place], [place] [id number] 626.2 [place] [facility] 103 January, Menometrorrhagia 626.2 [place] [id number] [place] [facility] 103 January, [place] [id number] [facility] [facility] 103 Dec, Menometrorrhagia 626.2 [place] [id number] [facility] [address] [facility] Oct, Menometrorrhagia 626.2 ; [facility] [address] [place], Tobacco use disorder 305.1 [place] [id number] ; Dysmenorrhea 625.3 and Submucous leiomyoma of uterus 218.0 [facility] 103 Oct, [place], [place] [id number] [facility] 103 Oct, Menometrorrhagia 626.2 ; [facility] Tobacco use disorder 305.1 [place], [place] [id number] and Dysmenorrhea 625.3 [facility] 103 Oct, Menometrorrhagia 626.2 ; [facility] Tobacco use disorder 305.1 [place], [place] [id number] and Dysmenorrhea 625.3 [facility] 103 Oct, Menometrorrhagia 626.2 and [facility] Submucous leiomyoma of [place], [place] [id number] uterus [address] [facility] 103 Oct, Menometrorrhagia 626.2 ; [facility] Tobacco use disorder 305.1 [place], [place] [id number] and Dysmenorrhea 625.3 IMMUNIZATIONS No Known Immunizations SOCIAL HISTORY Never Assessed REASON FOR REFERRAL FUNCTIONAL STATUS PLAN OF CARE Activity Details Follow Up Schedule diagnostic hysteroscopy/D&C (possible in office) f/b TLH/BS /cysto a few weeks later. No med clearance. Reason: VITAL SIGNS Height 61.75 in 2018-07-03 Weight 176 lbs 2018-07-03 BMI 32.45 kg/m2 2018-07-03 Blood pressure systolic 122 mm Hg 2018-07-03 Blood pressure diastolic 72 mm Hg 2018-07-03 MEDICATIONS Medication Instructions Dosage Frequency Start End Duration Status Date Date Zinc 140 mg (as orally once a day 1 tab(s) 24h Active elemental zinc 50 mg) Nasonex 50 intranasally BID 2 12h Active mcg/inh spray(s) Ferosul 325 mg orally QD 1 tab(s) 24h Jun, day(s) Active 2018 Vitamin C 500 mg orally once a day 1 tab(s) 24h Active Zyrtec 10 mg orally once a day 1 tab(s) 24h Active Vitamin B12 100 orally once a day 1 tab(s) 24h Active mcg Colace sodium orally 2 times a 1 cap(s) 12h Active 100 mg day Tumeric Once a Active day Effexor ER 150 orally QD 1 tab 24h Active mg megestrol 20 mg orally 3 times a 1 tab(s) 8h 30 day(s) Active day multivitamin orally once a day 1 cap(s) 24h Active Multiple Vitamins Mirena 52 mg by intrauteral 1 ea Active administration once Ventolin HFA CFC inhaled PRN 2 puff(s) Active free 90 mcg/inh biotin 1000 mcg orally once a day 1 tab(s) 24h Active multivitamin orally once a day 1 tab(s) 24h Active Multiple Vitamins meclizine 12.5 orally PRN for 1 tab(s) Active mg dizziness Vitamin D3 1000 orally once a day 1 tab(s) 24h Active intl units PROCEDURES No Known procedures RESULTS No Results REASON FOR VISIT hystero/emb fup, Anemic Insurance Providers [facility] Member Patient Patient Patient Patient Patient Subscriber Subscriber Subscriber Group Insurance Plan Plan Plan Plan ID Relationship Address Phone Name Date of ID Name Date of No Type Insurance Insurance Insurance Coverage to Subscriber Address Phone Name Dates [facility] [phone] Atticairaj Lopez [id number] Plan for 1600 Plan for [facility] [employer] [facility] Gov[employer] Employees [place] Employees [id number] MEDICAL (GENERAL) HISTORY Type Description Date Medical [...] when they went into to 2004 or 2005 repeair it doctor knicked stomach and had to go in and do emergency surgery to [facility] Surgical History Lap Band 2010 Surgical History umbilical hernia repair 2006 Surgical History appendectomy 1985 Surgical History colonoscopy 2012 Surgical History Colonoscopy- 3 polyps- 1 was precancerous 2015 Surgical History Gastric Bypass 05/2017 Hospitalization History see above Hospitalization History see above Hospitalization History childbirth x 2 Hospitalization History childbirth x 2 Hospitalization History Gastric Bypass 05/2017
--- OUTSIDE RECORDS SUMMARY | 2018-07-24 20:22 | XMS REPORT ---
:1965 Author Organization [facility] Address [address] [place] [address] Care Team Providers Name Role Phone Jermaine Gross Unavailable Unavailable PROBLEMS Type Condition ICD9-CM ICH00-RY Onset Condition SNOMED Code Code Code Dates Status Problem Family history of Z80.0 Active 352751481 malignant neoplasm of digestive organs Problem Unspecified R32 Active 092421174 urinary incontinence Problem Unspecified lump N63.21 Active 507453460425116 in the left breast, upper outer quadrant Problem Nicotine F17.200 Active 704192008 dependence, unspecified, uncomplicated Problem Excessive and N92.0 Active 723618424 frequent menstruation with regular cycle Problem Hypertrophy of N85.2 Active 759643238 uterus Problem Leiomyoma of D25.9 Active 81193679 uterus, unspecified Problem Submucous D25.0 Active 83913684 leiomyoma of uterus Problem 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 103 Jun, OBGYN [place], [place] [id number] [address] Jun, Excessive and frequent [address] [place], menstruation with regular [place] [id number] cycle N92.0 ; Leiomyoma of uterus, unspecified D25.9 ; Hypertrophy of uterus N85.2 and 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 [facility] [place] May, Other specified abnormal [address] [place], uterine and vaginal [place] [id number] bleeding N93.8 and Leiomyoma of uterus, unspecified D25.9 [facility] May, Other specified [facility] vaginal [place], [place] [id number] bleeding N93.8 and Leiomyoma of uterus, unspecified D25.9 [facility] 103 May, Other specified abnormal [facility] uterine and vaginal [place], [place] [id number] bleeding N93.8 and Leiomyoma of uterus, unspecified D25.9 [facility] 103 May, Unspecified [facility] the [facility] left breast, upper outer [place], [place] [id number] quadrant N63.21 ; Other specified abnormal uterine and vaginal bleeding N93.8 and Leiomyoma of uterus, unspecified D25.9 [facility] 103 May, [place], [place] [id number] [facility] 103 Apr, [place] [id number] [facility] 103 Apr, [place] [id number] [facility] 103 Feb, [place] [id number] [place] [facility] 103 January, Encounter for gynecological [facility] examination (general) [place], [place] [id number] (routine) with abnormal findings Z01.411 ; Nicotine dependence, unspecified, uncomplicated F17.200 ; Encounter for screening for malignant neoplasm of cervix Z12.4 ; Encounter for screening for malignant neoplasm of colon Z12.11 ; Unspecified urinary incontinence R32 ; Unspecified lump in the left breast, upper outer quadrant N63.21 and Family history of malignant neoplasm of digestive organs Z80.0 [place] [facility] 103 09 Oct, 2017 OBGYN [place], [place] [id number] [place] [facility] 103 Jun, OBGYN [place] [id number] [place] [facility] 103 Jul, Encounter for gynecological OBGYN [facility] examination (general) [place], [place] [id number] (routine) without abnormal findings Z01.419 ; Nicotine dependence, unspecified, uncomplicated F17.200 and Encounter for screening mammogram for malignant neoplasm of breast Z12.31 [place] [facility] 103 Jun, Encounter for gynecological OBGYN [facility] examination (general) [place], [place] [id number] (routine) without abnormal findings Z01.419 and Encounter for screening mammogram for malignant neoplasm of breast Z12.31 [place] [facility] 103 Apr, IUD SURVEILLANCE V25.42 OBN [place], [place] [id number] [place] [facility] 103 Feb, OBG[place] [id number] [place] [facility] 103 Feb, Menometrorrhagia 626.2 OBGYN [place] [id number] [place] [facility] 103 January, CONTRACEPTIVE MANGMT NOS [facility] V25.9 and Menometrorrhagia [place], [place] [id number] 626.2 [place] [facility] 103 January, Menometrorrhagia 626.2 OBGYN [place], [place] [id number] [place] [facility] 103 January, OBGYN [place] [id number] [place] [facility] 103 Dec, Menometrorrhagia 626.2 OBGYN [place] [id number] [facility] Oct, Menometrorrhagia 626.2 ; OBGYN [address] [place], Tobacco use disorder 305.1 [place] [id number] ; Dysmenorrhea 625.3 and Submucous leiomyoma of uterus 218.0 [facility] 103 Oct, OBGYN [place] [id number] [facility] 103 Oct, Menometrorrhagia 626.2 ; OBGYN [facility] Tobacco use disorder 305.1 [place], [place] [id number] and Dysmenorrhea 625.3 [facility] 103 Oct, Menometrorrhagia 626.2 ; OBGYN [facility] Tobacco use disorder 305.1 [place], [place] [id number] and Dysmenorrhea 625.3 [facility] 103 Oct, Menometrorrhagia 626.2 [facility]omyoma of [place] [id number] uterus 218.0 [facility] 103 Oct, Menometrorrhagia 626.2 ; OBGYN [facility] Tobacco use disorder 305.1 [place], [place] [id number] and Dysmenorrhea 625.3 IMMUNIZATIONS No Known Immunizations SOCIAL HISTORY Never Assessed REASON FOR REFERRAL FUNCTIONAL STATUS PLAN OF CARE VITAL SIGNS MEDICATIONS Medication Instructions Dosage Frequency Start End Date Duration Status Date megestrol 20 mg orally 3 times a 1 tab(s) 8h 30 day(s) Active day PROCEDURES No Known procedures RESULTS No Results REASON FOR VISIT Megestrol and Iron Insurance Providers [facility] Health Member Patient Patient Patient Patient Patient Subscriber Subscriber Subscriber Group Insurance Plan Plan Plan Plan ID Relationship Address Phone Name Date of ID Name Date of No Type Insurance Insurance Insurance Coverage to Subscriber Address Phone Name Dates Michael ANDREEA Valdes [phone] Hegins self Jessica [id number] Plan for [address] [place] [address] [facility] [employer] [place] Employees [id number] MEDICAL (GENERAL) HISTORY Type Description Date Medical [...]
--- OUTSIDE RECORDS SUMMARY | 2018-07-24 20:22 | XMS REPORT ---
:1965 Author Organization [facility] Address [address] [place] [address] Care Team Providers Name Role Phone Jermaine Gross Unavailable Unavailable PROBLEMS Type Condition ICD9-CM WPR31-JA Onset Condition SNOMED Code Code Code Dates Status Problem Nicotine F17.200 Active 445428665 dependence, unspecified, uncomplicated Problem Unspecified lump N63.21 Active 556622421923871 in the left breast, upper outer quadrant Problem Family history of Z80.0 Active 621149405 malignant neoplasm of digestive organs Problem Excessive and N92.0 Active 071876591 frequent menstruation with regular cycle Problem Hypertrophy of N85.2 Active 273651714 uterus Problem Submucous D25.0 Active 54316864 leiomyoma of uterus Problem Unspecified R32 Active 669253213 urinary incontinence Problem 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) Problem Leiomyoma of D25.9 Active 11121754 uterus, unspecified ALLERGIES Substance Reaction Event Type Date Status latex swelling Drug Allergy Jun, Active hydrocodone pruritus Drug Allergy Jun, Active morphine extreme vomiting Drug Allergy Jun, Active Relafen severe headache Drug Allergy Jun, Active Cefzil hives Drug Allergy Jun, Active ENCOUNTERS Encounter Location Date Diagnosis [address] Jul, [facility] [address] [place], [place] [id number] [facility] [address] [place], Jul, [facility] [id number] [address] Jul, [facility] [address] [place], [place] [id number] [facility] 103 Jun, Excessive and frequent OBGYN [facility] menstruation with regular [place], [place] [id number] cycle N92.0 ; Leiomyoma of uterus, unspecified D25.9 ; Hypertrophy of uterus N85.2 ; 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 and Encounter for routine checking of intrauterine contraceptive device Z30.431 [facility] 103 Jun, Excessive and frequent OBGYN [facility] menstruation with regular [place], [place] [id number] cycle N92.0 ; Leiomyoma of uterus, unspecified D25.9 ; Hypertrophy of uterus N85.2 and 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 [facility] 103 Jun, Other specified abnormal OBGYN [facility] uterine and vaginal [place], [place] [id number] bleeding N93.8 and 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 [facility] 103 Jun, OBGYN [place] [id number] [place] [facility] [address] [place] [address] Jun, Excessive and frequent OBGYN [address] [place], menstruation with regular [place] [id number] cycle N92.0 ; Leiomyoma of uterus, unspecified D25.9 ; Hypertrophy of uterus N85.2 and 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 [place] [facility] [address] [facility] May, Other specified abnormal [address] [place], uterine and vaginal [place] [id number] bleeding N93.8 and Leiomyoma of uterus, unspecified D25.9 [facility] 103 May, Other specified abnormal OBGYN [facility] uterine and vaginal [place], [place] [id number] bleeding N93.8 and Leiomyoma of uterus, unspecified D25.9 [facility] 103 May, Other specified abnormal OBGYN [facility] uterine and vaginal [place], [place] [id number] bleeding N93.8 and Leiomyoma of uterus, unspecified D25.9 [place] [facility] 103 11 May, 2018 Unspecified lump in the OBGYN [facility] left breast, upper outer [place], [place] [id number] quadrant N63.21 ; Other specified abnormal uterine and vaginal bleeding N93.8 and Leiomyoma of uterus, unspecified D25.9 [place] [facility] 103 May, OBGYN [place] [id number] [place] [facility] 103 Apr, OBG[place], [place] [id number] [place] [facility] 103 Apr, O[place] [id number] [place] [facility] 103 Feb, OBG[place] [id number] [place] [facility] 103 January, [facility] [place], [place] [id number] (routine) with abnormal findings Z01.411 ; Nicotine dependence, unspecified, uncomplicated F17.200 ; Encounter for screening for malignant neoplasm of cervix Z12.4 ; Encounter for screening for malignant neoplasm of colon Z12.11 ; Unspecified urinary incontinence R32 ; Unspecified lump in the left breast, upper outer quadrant N63.21 and Family history of malignant neoplasm of digestive organs Z80.0 [place] [facility] 103 Oct, OBG[place] [id number] [place] [facility] 103 Jun, OBG[place], [place] [id number] [place] [facility] 103 Jul, Encounter for gynecological OBGYN [facility] examination (general) [place], [place] [id number] (routine) without abnormal findings Z01.419 ; Nicotine dependence, unspecified, uncomplicated F17.200 and Encounter for screening mammogram for malignant neoplasm of breast Z12.31 [place] [facility] 103 Jun, [facility] [place], [place] [id number] (routine) without abnormal findings Z01.419 and Encounter for screening mammogram for malignant neoplasm of breast Z12.31 [facility] 103 Apr, IUD SURVEILLANCE V25.42 [place] [id number] [facility] 103 Feb, [place] [id number] [facility] 103 Feb, Menometrorrhagia 626.2 [place] [id number] [facility] 103 January, CONTRACEPTIVE MANGMT NOS OBGYN [facility] V25.9 and Menometrorrhagia [place], [place] [id number] 626.2 [facility] 103 January, Menometrorrhagia 626.2 [place] [id number] [facility] 103 January, [place] [id number] [facility] 103 Dec, Menometrorrhagia 626.2 [place] [id number] [facility] Oct, Menometrorrhagia 626.2 ; [facility] [address] [place], Tobacco use disorder 305.1 [place] [id number] ; Dysmenorrhea 625.3 and Submucous leiomyoma of uterus 218.0 [place] [facility] 103 Oct, [place] [id number] [place] [facility] 103 Oct, Menometrorrhagia 626.2 ; [facility] Tobacco use disorder 305.1 [place], [place] [id number] and Dysmenorrhea 625.3 [place] [facility] 103 Oct, Menometrorrhagia 626.2 ; [facility] Tobacco use disorder 305.1 [place], [place] [id number] and Dysmenorrhea 625.3 [facility] 103 Oct, Menometrorrhagia 626.2 and [facility] Submucous leiomyoma of [place], [place] [id number] uterus 218.0 [facility] 103 02 Oct, 2014 Menometrorrhagia 626.2 ; [facility] Tobacco use disorder 305.1 [place], [place] [id number] and Dysmenorrhea 625.3 IMMUNIZATIONS No Known Immunizations SOCIAL HISTORY Never Assessed REASON FOR REFERRAL FUNCTIONAL STATUS PLAN OF CARE Activity Details Follow Up f/u as scheduled. Please tell OR will do cold knife extraction. Reason: Pending Test Gynecologic Biopsy VITAL SIGNS Height 61.75 in 2018-07-18 Weight 176 lbs 2018-07-18 BMI 32.45 kg/m2 2018-07-18 Blood pressure systolic 110 mm Hg 2018-07-18 Blood pressure diastolic 72 mm Hg 2018-07-18 MEDICATIONS Medication Instructions Dosage Frequency Start End Duration Status Date Date Vitamin D3 1000 orally once a day 1 tab(s) 24h Active intl units Effexor ER 150 orally QD 1 tab 24h Active mg meclizine 12.5 orally PRN for 1 tab(s) Active mg dizziness Vitamin B12 100 orally once a day 1 tab(s) 24h Active mcg multivitamin orally once a day 1 tab(s) 24h Active Multiple Vitamins Ventolin HFA CFC inhaled PRN 2 puff(s) Active free 90 mcg/inh Ferosul 325 mg orally QD 1 tab(s) 24h 30 day(s) Active megestrol 20 mg orally 3 times a 1 tab(s) 8h 30 day(s) Active day Cytotec 200 mcg orally 1 tab at 1 tab(s) Jun, Active dinner night 2018 before procedure, 1 tab at bedtime night before procedure, 1 tab at 6 AM day of procedure biotin 1000 mcg orally once a day 1 tab(s) 24h Active Vitamin C 500 mg orally once a day 1 tab(s) 24h Active Zinc 140 mg (as orally once a day 1 tab(s) 24h Active elemental zinc 50 mg) Nasonex 50 intranasally BID 2 12h Active mcg/inh spray(s) diazepam 10 mg orally 1 hour 1 tab(s) Jun, 1 days Active before procedure 2017 Mirena 52 mg by intrauteral 1 ea Active administration once Colace sodium orally 2 times a 1 cap(s) 12h Active 100 mg day Tumeric Once a Active day Zyrtec 10 mg orally once a day 1 tab(s) 24h Active Zofran 4 mg orally 1 hour 1 tab(s) 23 Oct, 1 days Active before procedure 2018 PROCEDURES Procedure Date Ordered Result Body Site HYSTEROSCOPY, BIOPSY Jul 18, 2018 PARACERVICAL BLOCK Jul 18, 2018 IUD REMOVAL Jul 18, 2018 URINE TEST Jul 18, 2018 RESULTS No Results REASON FOR VISIT in office diagnostic hysteroscopy/D&C Insurance Providers [facility] Health Member Patient Patient Patient Patient Patient Subscriber Subscriber Subscriber Group Insurance Plan Plan Plan Plan ID Relationship Address Phone Name Date of ID Name Date of No Type Insurance Insurance Insurance Coverage to Subscriber Address Phone Name Dates [place] [phone] Michael Lopez [id number] Plan for [id number] Plan [facility] [employer] [place] [employer] [place] Employees [id number] MEDICAL (GENERAL) HISTORY Type Description Date Medical [...]
[2018-07-24 20:43] VITALS: BP 128/79
[2018-07-24] MEDS ORDERED: Azithromycin TAB* 250 MG PO ONE (21:04)
--- NOTE | 2018-07-24 21:08 | ED ---
Headache - HPI Summary HPI Summary: pt presents to the for evaluation of her headache. she states that she gets migraines on occasion. she states it is located to her frontal and occipital region. this is where she typically gets her headaches. she took tylenol without relief. she states that she thinks she may have a sinus infection. she complains of right facial pain. she denies any fever or chills. - History Of Current Complaint Chief Complaint: UCHeadache Stated Complaint: MIGRAINE Hx Obtained From: Patient Hx Last Menstrual Period: 07/18/18 Timing: Constant Character: Throbbing Aggravating Factor: Nothing Allevating Factors: Nothing - Allergies/Home Medications Allergies/Adverse Reactions: Allergies Allergy/AdvReac Type Severity Reaction Status Date / Time ciprofloxacin [From Cipro] Allergy Intermediate Hives Verified 07/24/18 20:34 hydrocodone [From Vicodin] Allergy Intermediate Itching Verified 07/24/18 20:34 latex Allergy Intermediate Rash And Verified 07/24/18 20:34 SWELLING morphine AdvReac Severe Vomiting Verified 07/24/18 20:34 nabumetone [From Relafen] AdvReac Severe Headache Verified 07/24/18 20:34 NSAIDS (Non-Steroidal AdvReac Avoids PO Verified 07/24/18 20:34 Anti-Inflamma NSAIDS due to Gastric Bypass and Morales's Home Medications: Home Medications Acetaminophen [Acetaminophen Extra Strength] 1,000 mg PO Q6H PRN 07/24/18 [ History Confirmed 07/24/18] Megestrol TAB* [Megace TAB*] 20 mg PO TID 07/24/18 [History Confirmed 07/24/18] Phenylephrine HCl [Sudafed PE] 20 mg PO Q6H PRN 07/24/18 [History Confirmed 10/10] Rizatriptan (NF) [Maxalt-Pulverizer Tender (NF)] 10 mg PO SEE INSTRUCTIONS PRN 07/24/18 [ History Confirmed 07/24/18] Rizatriptan ODT (NF) [Maxalt-OCC THER (NF)] 10 mg PO 07/24/18 [History] diPHENhydraMINE PO* [Benadryl PO 25 MG TAB*] 25 mg PO Q6H PRN 07/24/18 [History Confirmed 07/24/18] PMH/Surg Hx/FS Hx/Imm Hx Previously Healthy: Yes Endocrine/Hematology History: Reports: Hx Anemia - as a teenager Denies: Hx Diabetes Cardiovascular History: Denies: Hx Hypertension, Hx Pacemaker/ICD, Other Cardiovascular Problems/ Disorders Respiratory History: Reports: Hx Asthma Denies: Other Respiratory Problems/Disorders GI History: Reports: Hx Gastroesophageal Reflux Disease Denies: Other GI Disorders History: Denies: Hx Renal Disease Musculoskeletal History: Reports: Hx Arthritis - knees Denies: Other Musculoskeletal History Sensory History: Reports: Hx Contacts or Glasses - READING GLASSES Denies: Hx Hearing Aid Opthamlomology History: Reports: Hx Contacts or Glasses - READING GLASSES Neurological History: Reports: Hx Migraine, Hx Seizures Denies: Other Neuro Impairments/Disorders Psychiatric History: Reports: Hx Anxiety, Hx Depression - ON MEDS Denies: Hx Panic Disorder - Surgical History Surgery Procedure, Year, and Place: lap band 2009 x2, hernia repair , breast reduction 2004, appendectomy 1985 carpal tunnel RELEASE, RIGHT Hx Anesthesia Reactions: No Infectious Disease History: No Infectious Disease History: Denies: Traveled Outside the [place] in Last 30 Days - Family History Known Family History: Positive: Blood Disorder - father with PE, mat GM with PE - Social History Alcohol Use: Rare Alcohol Amount: 1 PER MONTH Substance Use Type: Reports: None Smoking Status (MU): Heavy Every Day Tobacco Smoker Type: Cigarettes Amount Used/How Often: 1/2 PPD Length of Time of Smoking/Using Tobacco: Since Age 18 Have You Smoked in the Last Year: Yes Review of Systems Constitutional: Negative Negative: Fever, Chills, Fatigue, Skin Diaphoresis Negative: Photophobia, Blurred Vision, Diplopia, Drainage Negative: Epistaxis, Dental Pain, Sore Throat, Ear Ache Negative: Palpitations, Chest Pain Negative: Shortness Of Breath, Cough Negative: Abdominal Pain, Vomiting, Diarrhea, Nausea Negative: dysuria, hematuria Negative: Arthralgia, Myalgia, Decreased ROM, Edema Negative: Rash, Bruising Positive: Headache. Negative: Paresthesia, Numbness, Syncope Negative: Anxious, Depressed All Other Systems Reviewed And Are Negative: No Physical Exam Triage Information Reviewed: Yes Vital Signs On Initial Exam: Initial Vitals Temp Pulse Resp BP Pulse Ox 98.9 F 86 20 128/79 99 07/24/18 20:29 07/24/18 20:29 07/24/18 20:29 07/24/18 20:29 07/24/18 20:29 Vital Signs Reviewed: Yes Appearance: Positive: Well-Appearing, No Pain Distress, Well-Nourished Skin: Positive: Warm, Dry Head/Face: Positive: Normal Head/Face Inspection Eyes: Positive: Normal, EOMI, SJ ENT: Positive: Normal ENT inspection, Hearing grossly normal, Pharynx normal, Other - right facial pain over her maxillary sinus Neck: Positive: Supple, Nontender Respiratory/Lung Sounds: Positive: Breath Sounds Present Cardiovascular: Positive: Normal, RRR Abdomen Description: Positive: Nontender, Soft Bowel Sounds: Positive: Present Musculoskeletal: Positive: Normal, Strength/ROM Intact Neurological: Positive: Normal, Sensory/Motor Intact, Alert, Oriented to Person Place, Time, CN Intact II-III Psychiatric: Positive: Normal AVPU Assessment: Alert Diagnostics - Vital Signs Vital Signs Temp Pulse Resp BP Pulse Ox 07/24/18 20:29 98.9 F 86 20 128/79 99 - Laboratory Lab Statement: Any lab studies that have been ordered have been reviewed, and results considered in the medical decision making process. Headache Course/Dx - Diagnoses Provider Diagnoses: Migraine, Sinusitis Discharge - Sign-Out/Discharge Documenting (check all that apply): Patient Departure All imaging exams completed and their final reports reviewed: No Studies - Discharge Plan Condition: Stable Disposition: HOME Prescriptions: Azithromyxin KRIS (NF) [Z-Kris (Zithromax) 250 mg tabs #6] 2 tab PO .TODAY, THEN 1 DAILY #6 tab Patient Education Materials: Sinusitis (ED), Migraine Headache (ED) Forms: *Work Release Referrals: Naun Chavez MD [Primary Care Provider] - Additional Instructions: take tylenol for pain. take the antibiotic as instructed. return if worse or any new symptoms. It is important to follow up with your primary care physician. - Billing Disposition and Condition Condition: STABLE Disposition: Home
== END 2018-07-24 21:13 | disposition home or self-care (01) ==
LOC: UCCORT 18:55
DX: G43.909 Migraine, unspecified, not intractable, without status migrainosus (principal); J01.90 Acute sinusitis, unspecified; F17.210 Nicotine dependence, cigarettes, uncomplicated; Z88.5 Allergy status to narcotic agent; Z88.8 Allergy status to other drugs, medicaments and biological substances
CPT/HCPCS: 99212; A9270-GY; G0463

== ENCOUNTER 2018-08-03 09:07 | Emergency (ER) | payer BC, OTHER ==
--- OUTSIDE RECORDS SUMMARY | 2018-08-03 10:25 | XMS REPORT ---
:1965 Author Organization [facility] Address [address] [place] [address] Care Team Providers Name Role Phone Jermaine Gross Unavailable Unavailable PROBLEMS Type Condition ICD9-CM [id number] Onset Condition SNOMED Code Code Code Dates Status Problem Nicotine F17.200 Active 451299235 dependence, unspecified, uncomplicated Problem Unspecified lump N63.21 Active 592853843706219 in the left breast, upper outer quadrant Problem Family history of Z80.0 Active 418056446 malignant neoplasm of digestive organs Problem Excessive and N92.0 Active 620924543 frequent menstruation with regular cycle Problem Hypertrophy of N85.2 Active 580434525 uterus Problem Submucous D25.0 Active 69231964 leiomyoma of uterus Problem Unspecified R32 Active 183257218 urinary incontinence Problem 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 094461568 anemia secondary to blood loss (chronic) Problem Leiomyoma of D25.9 Active 14278107 uterus, unspecified ALLERGIES Substance Reaction Event Type Date Status latex swelling Drug Allergy Jul, Active hydrocodone pruritus Drug Allergy Jul, Active morphine extreme vomiting Drug Allergy Jul, Active Relafen severe headache Drug Allergy Jul, Active Cefzil hives Drug Allergy Jul, Active ENCOUNTERS Encounter Location Date Diagnosis [address] Jul, [facility] [address] [place], [place] [id number] [facility] [address] [place], Jul, [facility] [id number] [facility] 103 Jul, Excessive and frequent OBGYN [facility] menstruation with regular [place], [place] [id number] cycle N92.0 ; Leiomyoma of uterus, unspecified D25.9 and Hypertrophy of uterus N85.[address] [facility] Jul, Excessive and frequent [address] [place], menstruation with regular [place] [id number] cycle N92.0 ; Leiomyoma of uterus, unspecified D25.9 ; Hypertrophy of uterus N85.2 and 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 [facility] 103 Jun, Excessive and frequent OBGYN [facility] menstruation with regular [place], [place] [id number] cycle N92.0 ; Leiomyoma of uterus, unspecified D25.9 ; Hypertrophy of uterus N85.2 ; 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 and Encounter for routine checking of intrauterine contraceptive device Z30.431 [facility] Jun, Excessive and frequent OBGYN [facility] menstruation with regular [place], [place] [id number] cycle N92.0 ; Leiomyoma of uterus, unspecified D25.9 ; Hypertrophy of uterus N85.2 and 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 [facility] 103 Jun, Other specified [facility] [place] [id number] bleeding N93.8 and 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 [facility] 103 Jun, OBG[place] [id number] [facility] Jun, Excessive and frequent [address]BGYN [address] [place], menstruation with regular [place] [id number] cycle N92.0 ; Leiomyoma of uterus, unspecified D25.9 ; Hypertrophy of uterus N85.2 and 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 [place] [facility] [address] [place] [address] May, Other specified abnormal OBGYN [address] [place], uterine and vaginal [place] [id number] bleeding N93.8 and Leiomyoma of uterus, unspecified D25.9 [facility] 103 May, Other specified abnormal [facility] uterine and vaginal [place], [place] [id number] bleeding N93.8 and Leiomyoma of uterus, unspecified D25.9 [facility] May, Other specified abnormal [facility] uterine and vaginal [place], [place] [id number] bleeding N93.8 and Leiomyoma of uterus, unspecified D25.9 [facility] 103 May, Unspecified lump in the [facility] left breast, upper outer [place], [place] [id number] quadrant N63.21 ; Other specified abnormal uterine and vaginal bleeding N93.8 and Leiomyoma of uterus, unspecified D25.9 [facility] May, [place] [id number] [facility] Apr, [place] [id number] [facility] Apr, [place] [id number] [facility] 103 Feb, [place] [id number] [facility] January, Encounter for gynecological [facility] examination (general) [place], [place] [id number] (routine) with abnormal findings Z01.411 ; Nicotine dependence, unspecified, uncomplicated F17.200 ; Encounter for screening for malignant neoplasm of cervix Z12.4 ; Encounter for screening for malignant neoplasm of colon Z12.11 ; Unspecified urinary incontinence R32 ; Unspecified lump in the left breast, upper outer quadrant N63.21 and Family history of malignant neoplasm of digestive organs Z80.0 [facility] 103 Oct, [place] [id number] [facility] Jun, [place] [id number] [facility] 103 04 Jul, 2016 Encounter for gynecological OBGYN [facility] examination (general) [place], [place] [id number] (routine) without abnormal findings Z01.419 ; Nicotine dependence, unspecified, uncomplicated F17.200 and Encounter for screening mammogram for malignant neoplasm of breast Z12.31 [place] [facility] 103 30 Jun, 2015 Encounter for gynecological OBGYN [facility] examination (general) [place], [place] [id number] (routine) without abnormal findings Z01.419 and Encounter for screening mammogram for malignant neoplasm of breast Z12.31 [facility] 103 Apr, IUD SURVEILLANCE V25.42 [place] [id number] [facility] 103 Feb, [place] [id number] [facility] 103 Feb, Menometrorrhagia 626.2 [place] [id number] [facility] 103 January, CONTRACEPTIVE MANGMT NOS OBN [facility] V25.9 and Menometrorrhagia [place], [place] [id number] 626.2 [place] [facility] 103 January, Menometrorrhagia 626.2 [place] [id number] [place] [facility] January, [place] [id number] [facility] 103 Dec, Menometrorrhagia 626.2 [place] [id number] [facility] Oct, Menometrorrhagia 626.2 ; OBN [address] [place], Tobacco use disorder 305.1 [place] [id number] ; Dysmenorrhea 625.3 and Submucous leiomyoma of uterus 218.0 [place] [facility] Oct, [place] [id number] [facility] 103 11 Oct, 2014 Menometrorrhagia 626.2 ; [facility] Tobacco use disorder 305.1 [place], [place] [id number] and Dysmenorrhea 625.3 [facility] 103 10 Oct, 2014 Menometrorrhagia 626.2 ; [facility] Tobacco use disorder 305.1 [place], [place] [id number] and Dysmenorrhea 625.3 [facility] 103 10 Oct, [address] [facility] Submucous leiomyoma of [place], [place] [id number] uterus 218.0 [facility] 103 Oct, Menometrorrhagia 626.2 ; [facility] Tobacco use disorder 305.1 [place], [place] [id number] and Dysmenorrhea 625.3 IMMUNIZATIONS No Known Immunizations SOCIAL HISTORY Never Assessed REASON FOR REFERRAL FUNCTIONAL STATUS PLAN OF CARE Activity Details Follow Up f/u 2-3 wk post-op. Let OR know possible contained cold knife extraction. Reason: VITAL SIGNS Height 61.75 in 2018-07-31 Weight 174 lbs 2018-07-31 BMI 32.08 kg/m2 2018-07-31 Blood pressure systolic 112 mm Hg 2018-07-31 Blood pressure diastolic 72 mm Hg 2018-07-31 MEDICATIONS Medication Instructions Dosage Frequency Start End Duration Status Date Date Vitamin B12 100 orally once a day 1 tab(s) 24h Unknown mcg megestrol 20 mg orally 3 times a 1 tab(s) 8h 30 day(s) Unknown day Ventolin HFA CFC inhaled PRN 2 puff(s) Unknown free 90 mcg/inh Colace sodium orally 2 times a 1 cap(s) 12h Unknown 100 mg day Zinc 140 mg (as orally once a day 1 tab(s) 24h Unknown elemental zinc 50 mg) Ferosul 325 mg orally QD 1 tab(s) 24h 30 day(s) Active Nasonex 50 intranasally BID 2 12h Unknown mcg/inh spray(s) biotin 1000 mcg orally once a day 1 tab(s) 24h Unknown Vitamin C 500 mg orally once a day 1 tab(s) 24h Unknown Tumeric Once a Unknown day Vitamin D3 1000 orally once a day 1 tab(s) 24h Unknown intl units Effexor ER 150 orally QD 1 tab 24h Unknown mg meclizine 12.5 orally PRN for 1 tab(s) Unknown mg dizziness multivitamin orally once a day 1 tab(s) 24h Unknown Multiple Vitamins Zyrtec 10 mg orally once a day 1 tab(s) 24h Unknown Mirena 52 mg by intrauteral 1 ea Unknown administration once Z-PACK 2 STAT 24h Active THEN 1 PO PROCEDURES No Known procedures RESULTS No Results REASON FOR VISIT post op and presurgical counseling , Plan CKE Insurance Providers [facility] Member Patient Patient Patient Patient Patient Subscriber Subscriber Subscriber Group Insurance Plan Plan Plan Plan ID Relationship Address Phone Name Date of ID Name Date of No Type Insurance Insurance Insurance Coverage to Subscriber Address Phone Name Dates [place] [phone] Michael Lopez [id number] Plan for [id number] Plan [employer] [place] [employer] [employer] [place] [employer] [phone] MEDICAL (GENERAL) HISTORY Type Description Date Medical [...] go in and do emergency surgery to [facility] Surgical History Lap Band 2010 Surgical History umbilical hernia repair 2006 Surgical History appendectomy 1985 Surgical History colonoscopy 2012 Surgical History Colonoscopy- 3 polyps- 1 was precancerous 2015 Surgical History Gastric Bypass 05/2017 Surgical History Hyteroscopy d & C In office procedure 07/18/18 Hospitalization History see above Hospitalization History see above Hospitalization History childbirth x 2 Hospitalization History childbirth x 2 Hospitalization History Gastric Bypass 05/2017
--- OUTSIDE RECORDS SUMMARY | 2018-08-03 10:25 | XMS REPORT ---
:1965 Author Organization [facility] Address [address] [place] [address] Care Team Providers Name Role Phone Jermaine Gross Unavailable Unavailable PROBLEMS Type Condition ICD9-CM [id number] Onset Condition SNOMED Code Code Code Dates Status Problem Nicotine F17.200 Active 061030739 dependence, unspecified, uncomplicated Problem Unspecified lump N63.21 Active 738809401975796 in the left breast, upper outer quadrant Problem Family history of Z80.0 Active 428670506 malignant neoplasm of digestive organs Problem Excessive and N92.0 Active 065178918 frequent menstruation with regular cycle Problem Hypertrophy of N85.2 Active 086588596 uterus Problem Submucous D25.0 Active 19003580 leiomyoma of uterus Problem Unspecified R32 Active 402812659 urinary incontinence Problem 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) Problem Leiomyoma of D25.9 Active 71015326 uterus, unspecified ALLERGIES No Information ENCOUNTERS Encounter Location Date Diagnosis [address] Jul, OBGYN [address] [place], [place] [id number] [facility] [address] [place], Jul, [facility] [id number] [facility] 103 Jul, Excessive and frequent OBGYN [facility] menstruation with regular [place], [place] [id number] cycle N92.0 ; Leiomyoma of uterus, unspecified D25.9 and Hypertrophy of uterus N85.[address] Jul, Excessive and frequent OBGYN [address] [place], menstruation with regular [place] [id number] cycle N92.0 ; Leiomyoma of uterus, unspecified D25.9 ; Hypertrophy of uterus N85.2 and 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 [facility] Jun, Excessive and frequent OBGYN [facility] menstruation with regular [place], [place] [id number] cycle N92.0 ; Leiomyoma of uterus, unspecified D25.9 ; Hypertrophy of uterus N85.2 ; 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 and Encounter for routine checking of intrauterine contraceptive device Z30.431 [place] [facility] 103 Jun, Excessive and frequent OBGYN [facility] menstruation with regular [place], [place] [id number] cycle N92.0 ; Leiomyoma of uterus, unspecified D25.9 ; Hypertrophy of uterus N85.2 and 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 [facility] Jun, Other specified abnormal OBGYN [facility] uterine and vaginal [place], [place] [id number] bleeding N93.8 and 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 [place] [facility] 103 Jun, OBGYN [place], [place] [id number] [facility] [address] [place] [address] Jun, Excessive and frequent OBGYN [address] [place], menstruation with regular [place] [id number] cycle N92.0 ; Leiomyoma of uterus, unspecified D25.9 ; Hypertrophy of uterus N85.2 and 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 [place] [facility] [address] May, Other specified abnormal [address]YN [address] [place], uterine and vaginal [place] [id number] bleeding N93.8 and Leiomyoma of uterus, unspecified D25.9 [place] [facility] 103 May, Other specified abnormal OBGYN [facility] uterine and vaginal [place], [place] [id number] bleeding N93.8 and Leiomyoma of uterus, unspecified D25.9 [place] [facility] 103 May, Other specified abnormal [facility] uterine and vaginal [place], [place] [id number] bleeding N93.8 and Leiomyoma of uterus, unspecified D25.9 [place] [facility] 103 May, Unspecified lump in the [facility] left breast, upper outer [place], [place] [id number] quadrant N63.21 ; Other specified abnormal uterine and vaginal bleeding N93.8 and Leiomyoma of uterus, unspecified D25.9 [place] [facility] 103 May, O[place], [place] [id number] [place] [facility] 103 Apr, [place] [id number] [place] [facility] 103 Apr, [place] [id number] [place] [facility] 103 Feb, [place] [id number] [place] [facility] 103 January, [facility] [place], [place] [id number] (routine) with abnormal findings Z01.411 ; Nicotine dependence, unspecified, uncomplicated F17.200 ; Encounter for screening for malignant neoplasm of cervix Z12.4 ; Encounter for screening for malignant neoplasm of colon Z12.11 ; Unspecified urinary incontinence R32 ; Unspecified lump in the left breast, upper outer quadrant N63.21 and Family history of malignant neoplasm of digestive organs Z80.0 [place] [facility] 103 Oct, [place] [id number] [place] [facility] 103 Jun, [place] [id number] [place] [facility] 103 Jul, [facility] [place], [place] [id number] (routine) without abnormal findings Z01.419 ; Nicotine dependence, unspecified, uncomplicated F17.200 and Encounter for screening mammogram for malignant neoplasm of breast Z12.31 [place] [facility] 103 Jun, Encounter for gynecological OBGYN [facility] examination (general) [place], [place] [id number] (routine) without abnormal findings Z01.419 and Encounter for screening mammogram for malignant neoplasm of breast Z12.31 [facility] Apr, IUD SURVEILLANCE V25.42 OBGYN [place] [id number] [place] [facility] 103 Feb, OBG[place], [place] [id number] [place] [facility] 103 Feb, Menometrorrhagia 626.2 OBGYN [place] [id number] [place] [facility] 103 January, CONTRACEPTIVE MANGMT NOS OBGYN [facility] V25.9 and Menometrorrhagia [place], [place] [id number] 626.2 [place] [facility] 103 January, Menometrorrhagia 626.2 OBGYN [place] [id number] [place] [facility] 103 January, OBG[place], [place] [id number] [place] [facility] 103 Dec, Menometrorrhagia 626.2 OBN [place] [id number] [address] Oct, Menometrorrhagia 626.2 ; [facility] [address] [place], Tobacco use disorder 305.1 [place] [id number] ; Dysmenorrhea 625.3 and Submucous leiomyoma of uterus 218.0 [place] [facility] 103 Oct, OBGYN [place] [id number] [place] [facility] 103 Oct, Menometrorrhagia 626.2 ; [facility] Tobacco use disorder 305.1 [place], [place] [id number] and Dysmenorrhea 625.3 [facility] 103 10 Oct, 2014 Menometrorrhagia 626.2 ; [facility] Tobacco use disorder 305.1 [place], [place] [id number] and Dysmenorrhea 625.3 [facility] 103 10 Oct, 2014 Menometrorrhagia 626.2 and [facility] Submucous leiomyoma of [place], [place] [id number] uterus 218.0 [facility] 103 02 Oct, 2014 Menometrorrhagia 626.2 ; [facility] Tobacco use disorder 305.1 [place], [place] [id number] and Dysmenorrhea 625.3 IMMUNIZATIONS No Known Immunizations SOCIAL HISTORY Never Assessed REASON FOR REFERRAL FUNCTIONAL STATUS PLAN OF CARE Activity Details Pending Test URINE CULTURE Pending Test URINALYSIS WITH MICROSCOPIC VITAL SIGNS MEDICATIONS Unknown Medications PROCEDURES No Known procedures RESULTS No Results REASON FOR VISIT Urine for Presurg Insurance Providers [facility] Health Member Patient Patient Patient Patient Patient Subscriber Subscriber Subscriber Group Insurance Plan Plan Plan Plan ID Relationship Address Phone Name Date of ID Name Date of No Type Insurance Insurance Insurance Coverage to Subscriber Address Phone Name Dates [place] [phone] E[place] self Jessica [id number] Plan for 1600 Plan [employer] [facility] Gov[employer] [place] Employees [phone] MEDICAL (GENERAL) HISTORY Type Description Date Medical [...]
[2018-08-03 10:33] VITALS: BP 114/72
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
== END 2018-08-03 11:00 | disposition home or self-care (01) ==
LOC: UCCORT 09:07
DX: S40.022A Contusion of left upper arm, initial encounter (principal); S40.021A Contusion of right upper arm, initial encounter; Y04.2XXA Assault by strike against or bumped into by another person, initial encounter; Y92.9 Unspecified place or not applicable; Y99.0 Civilian activity done for income or pay; Z88.1 Allergy status to other antibiotic agents; Z88.5 Allergy status to narcotic agent; Z88.8 Allergy status to other drugs, medicaments and biological substances; F17.210 Nicotine dependence, cigarettes, uncomplicated
CPT/HCPCS: 99211; G0463

== ENCOUNTER 2019-05-25 15:57 | Emergency (ER) | payer BC ==
[2019-05-25 17:01] VITALS: BP 106/75
--- NOTE | 2019-05-25 17:08 | UC ---
Throat Pain/Nasal Mich HPI - HPI Summary HPI Summary: Pt presetns with c/o sinus congestion, pressure and pain X 3 days. Pt has hx of sinusitis and states she thinks she is "getting another one" - History of Current Complaint Stated Complaint: POSSIBLE SINUS INFECTION Time Seen by Provider: 05/25/19 16:47 Hx Obtained From: Patient Hx Last Menstrual Period: 07/18/18 ?: No Onset/Duration: Gradual Onset, Lasting Days, Still Present, Worse Since - onset Severity: Moderate Pain Intensity: 0 Cough: None Associated Signs & Symptoms: Positive: Sinus Discomfort, Nasal Discharge Related History: Seasonal Allergies, Smoking - Epiglottits Risk Factors Epiglottis Risk Factors: Negative - Allergies/Home Medications Allergies/Adverse Reactions: Allergies Allergy/AdvReac Type Severity Reaction Status Date / Time ciprofloxacin [From Cipro] Allergy Intermediate Hives Verified 05/25/19 16:55 hydrocodone [From Vicodin] Allergy Intermediate Itching Verified 05/25/19 16:55 latex Allergy Intermediate Rash And Verified 05/25/19 16:55 SWELLING morphine AdvReac Severe Vomiting Verified 05/25/19 16:55 nabumetone [From Relafen] AdvReac Severe Headache Verified 05/25/19 16:55 NSAIDS (Non-Steroidal AdvReac Avoids PO Verified 05/25/19 16:55 Anti-Inflamma NSAIDS due to Gastric Bypass and Morales's PMH/Surg Hx/FS Hx/Imm Hx Previously Healthy: Yes Neurological History: Migraine Psychological History: Depression - Surgical History Surgical History: Yes Surgery Procedure, Year, and Place: lap band 2009 x2, hernia repair, breast reduction 2004, appendectomy 1984; carpal tunnel RELEASE, RIGHT; hysterectomy January 2018 - Family History Known Family History: Positive: Hypertension, Blood Disorder - father with PE, mat GM with PE - Social History Occupation: Employed Full-time Lives: With Family Alcohol Use: None Alcohol Amount: 1 PER MONTH Substance Use Type: None Smoking Status (MU): Heavy Every Day Tobacco Smoker Type: Cigarettes Amount Used/How Often: 1/2 PPD Length of Time of Smoking/Using Tobacco: Since Age 18 Have You Smoked in the Last Year: Yes When Did the Patient Quit Smoking/Using Tobacco: 5 months ago Household Exposure Type: Cigarettes - Immunization History Most Recent Influenza Vaccination: 2016 Most Recent Tetanus Shot: utd Most Recent Pneumonia Vaccination: 2014 Vaccination Up to Date: Yes Review of Systems All Other Systems Reviewed And Are Negative: Yes Constitutional: Positive: Fatigue Skin: Positive: Negative Eyes: Positive: Negative ENT: Positive: Nasal Discharge, Sinus Congestion, Sinus Pain/Tenderness Respiratory: Positive: Negative Cardiovascular: Positive: Negative Gastrointestinal: Positive: Negative Genitourinary: Positive: Negative Motor: Positive: Negative Neurovascular: Positive: Negative Musculoskeletal: Positive: Myalgia Neurological: Positive: Headache Psychological: Positive: Negative Is Patient Immunocompromised?: No Physical Exam Triage Information Reviewed: Yes Appearance: Ill-Appearing Vital Signs: Initial Vital Signs Temp 99.1 F 05/25/19 16:58 Pulse 94 05/25/19 16:58 Resp 16 05/25/19 16:58 BP 106/75 05/25/19 16:58 Pulse Ox 96 05/25/19 16:58 Vital Signs Reviewed: Yes Eye Exam: Normal ENT: Positive: Nasal congestion, Sinus tenderness Dental Exam: Normal Neck exam: Normal Respiratory: Positive: No respiratory distress Musculoskeletal Exam: Normal Neurological Exam: Normal Psychological Exam: Normal Skin Exam: Normal Throat Pain/Nasal Course/Dx - Differential Dx/Diagnosis Differential Diagnosis/HQI/PQRI: Influenza, Sinusitis, URI Provider Diagnosis: Sinusitis Discharge ED - Sign-Out/Discharge Documenting (check all that apply): Patient Departure All imaging exams completed and their final reports reviewed: No Studies - Discharge Plan Condition: Stable Disposition: HOME Prescriptions: Amoxicillin PO (*) [Amoxicillin 875 MG (*)] 875 mg PO Q12H #20 tab Fluconazole 100 MG TAB* [Diflucan 100 MG TAB*] 100 mg PO DAILY #2 tab Patient Education Materials: Sinusitis (ED) Referrals: Naun Chavez MD [Primary Care Provider] - If Needed - Billing Disposition and Condition Condition: STABLE Disposition: Home
== END 2019-05-25 17:19 | disposition home or self-care (01) ==
LOC: UCCORT 15:57
DX: J32.9 Chronic sinusitis, unspecified (principal); F17.210 Nicotine dependence, cigarettes, uncomplicated
CPT/HCPCS: 99212; G0463

== ENCOUNTER 2019-07-16 09:15 | Emergency (ER) | payer BC ==
[2019-07-16 09:34] VITALS: BP 118/81
--- NOTE | 2019-07-16 10:06 | UC ---
Eye Complaint HPI - HPI Summary HPI Summary: 53-year-old woman comes in with chief complaint of right eye irritation and swelling of the right lower orbit. She has some irritation lateral aspect of the eye this morning with some crusting. She's also been having upper respiratory tract infection symptoms for more than a week. She had sinusitis symptoms 3 weeks ago and had a continued cough but never really went away one week ago she started with runny nose and went into her chest and now she's having chest congestion. No wheezing no history of asthma. No fevers measured. She does feel tired. - History of Current Complaint Chief Complaint: UCEye Stated Complaint: RT EYE CONCERN Time Seen by Provider: 07/16/19 09:54 Hx Last Menstrual Period: 07/18/18 Pain Intensity: 0 - Allergies/Home Medications Allergies/Adverse Reactions: Allergies Allergy/AdvReac Type Severity Reaction Status Date / Time ciprofloxacin [From Cipro] Allergy Intermediate Hives Verified 07/16/19 09:35 hydrocodone [From Vicodin] Allergy Intermediate Itching Verified 07/16/19 09:35 latex Allergy Intermediate Rash And Verified 07/16/19 09:35 SWELLING morphine AdvReac Severe Vomiting Verified 07/16/19 09:35 nabumetone [From Relafen] AdvReac Severe Headache Verified 07/16/19 09:35 NSAIDS (Non-Steroidal AdvReac Avoids PO Verified 07/16/19 09:35 Anti-Inflamma NSAIDS due to Gastric Bypass and Morales's Home Medications: Home Medications Albuterol Sulfate [Proventil Hfa] 6.7 gm IH Q4HR PRN 07/16/19 [History Confirmed 07/16/19] PMH/Surg Hx/FS Hx/Imm Hx Previously Healthy: Yes GI/ History: Gastroesophageal Reflux - Surgical History Surgical History: Yes Surgery Procedure, Year, and Place: lap band 2009 x2, hernia repair, breast reduction 2004, appendectomy 1984; carpal tunnel RELEASE, RIGHT; hysterectomy January 2018 - Family History Known Family History: Positive: Hypertension, Blood Disorder - father with PE, mat GM with PE - Social History Alcohol Use: Rare Alcohol Amount: 1 PER MONTH Substance Use Type: None Smoking Status (MU): Heavy Every Day Tobacco Smoker Type: Cigarettes Amount Used/How Often: 1/2 PPD Length of Time of Smoking/Using Tobacco: Since Age 18 Have You Smoked in the Last Year: Yes When Did the Patient Quit Smoking/Using Tobacco: 5 months ago Household Exposure Type: Cigarettes - Immunization History Most Recent Influenza Vaccination: 2016 Most Recent Tetanus Shot: utd Most Recent Pneumonia Vaccination: 2015 Vaccination Up to Date: Yes Review of Systems All Other Systems Reviewed And Are Negative: Yes Constitutional: Positive: Fatigue Skin: Positive: Negative Eyes: Positive: Drainage, Other - SEE HPI ENT: Positive: Nasal Discharge, Sinus Congestion Respiratory: Positive: Cough, Other - SEE HPI Cardiovascular: Positive: Negative Gastrointestinal: Positive: Negative Motor: Positive: Negative Neurovascular: Positive: Negative Musculoskeletal: Positive: Negative Neurological: Positive: Negative Psychological: Positive: Negative Is Patient Immunocompromised?: No Physical Exam Triage Information Reviewed: Yes Appearance: Well-Appearing, No Pain Distress, Well-Nourished Vital Signs: Initial Vital Signs Temp 98 F 07/16/19 09:30 Pulse 101 07/16/19 09:30 Resp 16 07/16/19 09:30 BP 118/81 07/16/19 09:30 Pulse Ox 97 07/16/19 09:30 Vital Signs Reviewed: Yes Eyes: Positive: Conjunctiva Inflamed - RT, Other: - Some soft tissue edema just inferior to the right eye ENT: Positive: Pharyngeal erythema, Nasal congestion, Nasal drainage Neck: Positive: Supple Respiratory: Positive: No respiratory distress, Rhonchi Cardiovascular: Positive: RRR Musculoskeletal: Positive: Strength Intact, ROM Intact Neurological: Positive: Alert Psychological: Positive: Normal Response To Family, Age Appropriate Behavior Eye Complaint Course/Dx - Course Course Of Treatment: DISCUSSED VIRAL VERSES BACTERIAL INFECTIONS AND THE ROLE OF ANTIBIOTICS. THE PATIENT PREFERS TO BE ON ANTIBIOTICS AT THIS TIME. - Differential Dx/Diagnosis Provider Diagnosis: Conjunctivitis, Bronchitis Discharge ED - Sign-Out/Discharge Documenting (check all that apply): Patient Departure All imaging exams completed and their final reports reviewed: No Studies - Discharge Plan Condition: Stable Disposition: HOME Prescriptions: Azithromyxin KRIS (NF) [Z-Kris (Zithromax) 250 mg tabs #6] 2 tab PO .TODAY, THEN 1 DAILY #6 tab Tobramycin 0.3% OPHTH.DIANA* 1 drop RIGHT EYE Q4H #1 btl Patient Education Materials: Acute Bronchitis (ED), Conjunctivitis (ED) Referrals: Naun Chavez MD [Primary Care Provider] - Additional Instructions: FOLLOW UP WITH YOUR DOCTOR IF NOT COMPLETELY IMPROVED. GET REEVALUATED SOONER IF NOT IMPROVING OR YOUR CONDITION WORSENS OR ANY QUESTIONS OR CONCERNS. - Billing Disposition and Condition Condition: STABLE Disposition: Home
== END 2019-07-16 10:11 | disposition home or self-care (01) ==
LOC: UCCORT 09:15
DX: H10.9 Unspecified conjunctivitis (principal); J40 Bronchitis, not specified as acute or chronic; R09.81 Nasal congestion; R09.89 Other specified symptoms and signs involving the circulatory and respiratory systems; F17.210 Nicotine dependence, cigarettes, uncomplicated; Z88.1 Allergy status to other antibiotic agents; Z88.5 Allergy status to narcotic agent; Z91.040 Latex allergy status; Z88.8 Allergy status to other drugs, medicaments and biological substances
CPT/HCPCS: 99212; G0463